=== PATIENT | female | born 1970 ===

== ENCOUNTER 2023-01-04 13:30 | Outpatient (RCR) | payer OTHER, SELFPAY ==
--- NOTE | 2022-10-13 11:40 | PTOPEVAL1 ---
Assessment and note entered by Essence Juarez DPT Evaluation Information Assessment Status Evaluation Subjective Information Pt reports stress incontinence with coughing, sneezing, laughing, jumping, or running. Has been diagnosed with a rectocele and cystocele. Has to wear a pad at times. Has been worsening for about 10 years. Currently is getting incontinence every day but variable amounts. Denies pain with urination. Urinates more than 10 times a day, maybe once a night. Can hold urge to urinate variable amounts of time depending on how much fluid she has had and what she is doing. BM 2-3 times a day, no pain. Reports she feels weak as time with eliminating stool. Reports no history of pelvic pain. Pt has been 3 times, 3 deliveries: vaginal x 2 then . Minor tearing with her second. LEEP procedure at age 22. Pt is currently raine-menopausal. Patient goal: be able to run and do other activities without losing urine. Reported Pain Level Pain Score 0: Self Report Assessment PT Clinical Summary The patient is presenting to skilled therapy with a history of progressing stress urinary incontinence. She presents with decreased core and LE weakness, as well as decreased pelvic floor strength and endurance. These impairments are contributing to her daily incontinence and frequent pad use. She will benefit from therapy to address these impairments in order to reduce incontinence and improve function. Plan of Care Interventions Manual Therapy,Neuro Re-education,Patient/ Caregiver Education,Therapeutic Activities, Therapeutic Exercise,Self-Care/Home Management PT Services Indicated Yes Treatment Frequency and 1 time a week for 6 weeks Duration These treatments will address the objective and functional deficits as defined above. The patient will be advanced safely and appropriately in order for the patient to progress towards his/her prior level of function. Additional exercises will be introduced and as well as a comprehensive home exercise program upon discharge, if needed, ?to ensure carryover of functional gains achieved in the clinic. This treatment plan has been reviewed and agreement upon by the patient.
--- NOTE | 2022-11-23 14:31 | PTOPPROG ---
Assessment and note entered by Essence Juarez DPT Evaluation Information Assessment Status Progress Subjective Information Pt reports therapy has been going well and that the targeted exercises have been helping. Thinks she can control her bladder better, is about 75% of where she wants to be. In the last week has noticed urinary incontinence maybe twice , has been a few drops at a time. Thinks it would have been worse if she had tried to run or something like that. Assessment PT Clinical Summary The patient has made good progress in therapy and reports decreased frequency/volume of incontinence . She demonstrates improved pelvic floor strength and endurance. Due to her progress but continued incontinence, plan to continue therapy to further reduce frequency of incontinence. Plan of Care Interventions Manual Therapy,Neuro Re-education,Patient/ Caregiver Education,Therapeutic Activities, Therapeutic Exercise,Self-Care/Home Management PT Services Indicated Yes Treatment Frequency and 1 visit every other week for 3 visits Duration These treatments will address the objective and functional deficits as defined above. The patient will be advanced safely and appropriately in order for the patient to progress towards his/her prior level of function. Additional exercises will be introduced and as well as a comprehensive home exercise program upon discharge, if needed, ?to ensure carryover of functional gains achieved in the clinic. This treatment plan has been reviewed and agreement upon by the patient.
--- NOTE | 2023-01-04 13:52 | PTOPDC ---
Assessment and note entered by Essence Juarez DPT Evaluation Information Assessment Status Discharge Subjective Information Pt reports she has been fairly consistent with her HEP. In the last week has had incontinence 1-2 times in the last week, small amounts. Feels confident with discharge this visit. Reported Pain Level Pain Score 0: Self Report Assessment PT Clinical Summary The patient has made good progress overall in therapy. She has reached a plateau in progress at this time, but demonstrates decreased incontinence and improved strength since first visit. Plan for discharge at this time with education to continue HEP and follow up with MD and/or PT as needed. Plan of Care PT Services Indicated No
== END 2023-01-04 14:13 | disposition home or self-care (01) ==
LOC: ANHPT 13:30
DX: N39.3 Stress incontinence (female) (male) (principal)
CPT/HCPCS: 97110; 97112; 97161